=== PATIENT | female | born 1955 | race Caucasian/White ===

== ENCOUNTER → 2023-12-08 17:02 | Outpatient (REF) | payer BC, SELFPAY | LOC: WDC 17:02 | PROVIDERS: ATTENDING PHYSICIAN Family Medicine | DX: Z12.31 Encounter for screening mammogram for malignant neoplasm of breast (principal) | CPT/HCPCS: 77063; 77067 ==

== ENCOUNTER 2024-07-14 16:49 | Emergency (ER) | payer BC, SELFPAY ==
[2024-07-14 17:00] VITALS: BP 152/90
[2024-07-14 17:52] VITALS: BP 130/89
[2024-07-14 18:00] VITALS: BP 125/103
--- NOTE | 2024-07-14 18:41 | ED.GENMED ---
History of Present Illness
General
Chief Complaint: Chest Pain
Source: patient and records
Exam Limitations: none
Time Seen by Provider: 07/14/24 17:48
Nursing documentation reviewed up to this point in time: agreed with
History of Present Illness
History of Present Illness:
69-year-old female with a past medical history of hypertension, Takotsubo cardiomyopathy who presents to the emergency department for evaluation of chest pain. Patient reports onset of symptoms about 2 weeks ago and they have been intermittent
since that time�she reports episodes will last anywhere from 15 to 30 minutes and she gets them intermittently throughout the day; there is no clear exertional component or triggering factor and no clear relieving factor noted. She denies any
associated shortness of breath, nausea, vomiting, diaphoresis. She says that this morning she woke up with this chest pain and noticed that she was starting to have some radiation towards her left arm. She says that she checked her blood pressure
and it was very high (she notes that she forgot to take her blood pressure medicine in the past 2 days) and with this progression of pain in the left arm and elevated blood pressure decided she should come to the ER to be evaluated. She does follow
with cardiology through [facility] cardiology (Dr. Hanna). She currently is chest pain-free. She denies any other complaints including abdominal pain, edema or any other issues.
Review of Systems
Review of Systems
All Other Systems: ROS reviewed and negative except as documented in HPI and ROS
Constitutional: Denies fever or chills
EENT: Denies sore throat or runny nose
Respiratory: Denies cough or trouble breathing
Cardiac: Reports chest pain; Denies palpitations or syncope
ABD/GI: Denies abdominal pain, nausea or vomiting
: Denies flank pain
Musculoskeletal: Reports muscle pain (Left arm pain); Denies neck pain or back pain
Neurological: Denies dizzy or headache
Phy Exam
Physical Exam
Physical Exam:
General: Awake, alert, oriented x3; no acute distress
Head: Normocephalic, atraumatic
Eyes: Conjunctiva normal, EOMI
Throat: Airway intact, handling secretions
Neck: Trachea midline, supple without meningismus
Lungs: Clear to auscultation bilaterally, no wheezing, rales, rhonchi
Heart: Regular rate and rhythm, no murmurs, gallops, or rubs
Abd: Soft, non distended, nontender
Neuro: Cranial nerves grossly intact, speech fluid
Skin: no rash
Extremities: No edema in extremities, equal pulses in all extremities
Scores
Heart Failure Risk
Heart Failure Risk Score: Not Applicable
Heart Score for Chest Pain Patients
STEMI patient?: No
History: Slightly or Non-Suspicious
ECG: Normal
Age: >/= 65 years
Risk Factors: 1 or 2 Risk Factors
Troponin: </= Normal Limit
Heart Score for Chest Pain Patients: 3
Heart Score Risk: 2.5% MACE over next 6 weeks
Withdrawal Assessment of Alcohol
Withdrawal Assessment Completed?: Not applicable
Course
Orders/Labs/Results
Orders:
Orders
07/14/24 16:52
EKG [Electrocardiogram (*1)] Urgent
Reason for Study: Chest Pain
07/14/24 16:59
Electrocardiogram (*1) Urgent
Reason for Study: Chest Pain
EKG- Treatment ONCE
07/14/24 18:40
CR Chest - 2 Views Urgent
Comment:
Reason For Exam: chest pain
07/14/24 18:57
Complete Blood Count/With Diff Urgent
Comprehensive Metabolic Panel Urgent
D-Dimer Urgent
Lipase Urgent
Troponin I Urgent
Abnormal Lab Results
07/14/24
18:57
Hct 36.3 L %
(37.0-47.0)
BUN 19 H mg/dl
(7-17)
Calcium 11.0 H mg/dl
(8.4-10.2)
07/14/24 18:57
07/14/24 18:57
Vital Signs
Blood pressure: 125/102
Initial and Last Documented VS:
Initial Vital Signs
Temp Pulse Resp BP Pulse Ox
36.8 C 87 16 152/90 97
07/14/24 17:00 07/14/24 17:00 07/14/24 17:00 07/14/24 17:00 07/14/24 17:00
Last Documented Vital Signs
Temp Pulse Resp BP Pulse Ox
36.8 C 79 14 140/91 94
07/14/24 17:00 07/14/24 19:00 07/14/24 19:00 07/14/24 19:00 07/14/24 19:00
MDM/Problems Addressed
Differential Diagnosis Includes:
Angina/ACS, GERD, costochondritis, cervical radiculopathy, PE considered less likely
MDM/Problems Addressed:
69-year-old female presents for evaluation of intermittent chest pain left side, this morning not radiating to the arm. Not clearly exertional has been off and on for 2 weeks. Hypertensive this morning and in triage but blood pressure improved by
my assessment. Vital signs otherwise normal. EKG shows no STEMI. Physical exam as above. Plan to check labs including a CBC and a CMP, troponin, D-dimer. Check chest x-ray. Monitor on telemetry. Reassess after the above.
Labs reviewed: CBC unremarkable, CMP no clinically significant abnormalities. Troponin undetectable. D-dimer negative. Chest x-ray reviewed by me shows no acute disease. Vitals have been stable, patient well-appearing on reassessment. Low
suspicion that this is cardiac chest pain without clear exertional component�in fact patient reports that she was recently able to take a 4 mile hike without chest pain tolerated well. HEART score is 3. Symptoms could be GERD related�reasonable to
trial PPI. Nevertheless with her cardiac history reasonable to follow-up with cardiology expeditiously�can provide referral via chest pain hotline to follow-up with Dr. Hanna. Patient feels comfortable with this plan. Spoke about return
precautions and all questions answered.
Chronic conditions affecting care:
Hypertension
Chronic conditions affecting care: HTN
Acute Exacerbation and/or Progression of Chronic Illness: HTN
*Radiology
Radiology exam reviewed: preliminary read by ED provider
*Pulse Oximetry
Patient hypoxic: no
*EKG
Interpreted by ED Provider?: Yes
Heart Rate: 86
Rate: normal
Rhythm: sinus
Pickerel: normal axis
Interval: normal interval
QRS Pattern: normal QRS
Ischemia: no ischemia
*Critical Care Note
Total Time (30-74mins, 75-104mins- exclusive of procedures): Not Applicable
Data Reviewed
Review of Other/Old Records Reveals: Labs and Records
Source: patient and records
ED Attending Note
-
Portions of this chart may have been created with voice recognition software.� Occasional wrong word or��sound alike� substitutions may have occurred due to the inherent limitations of voice recognition software.
Discharge Plan
Departure
Patient Disposition: Home (Routine Discharge)
Date of Disposition: 07/14/24
Time of Disposition: 20:14
Patient with high blood pressure during this ER visit?: Yes
Discharge Problem:
Chest pain, Hypertension
Instructions: Chest Pain CBC Follow Up, BLOOD PRESSURE
Referrals:
Tamara Cisneros MD [Family Provider] -
Joanie Hanna MD [Active] - Follow up in 2-3 days
Activity Restrictions/Additional Instructions:
Thank you for visiting the Emergency Department at [facility].
1. Please schedule a follow up appointment as directed. Call first thing tomorrow morning to make an appointment.
2. If indicated, please take your medications as instructed and indicated on discharge paperwork.
3. If any of your symptoms do not improve, or persist, or become more severe within 6-12 hours, please return to the emergency department for further care.
4. Please return to the emergency department if you develop a headache, neck pain/stiffness, fever greater than 100.4F, chest pain, shortness of breath, persistent nausea, vomiting, slurred speech, difficulty walking, numbness/tingling, weakness,
signs of infection or any other symptoms that are worrisome to you.
Please call [phone] if you have any questions.
Interventions
Interventions:
ED- Cardiac Assessment Last Done: 07/14/24 19:02
Discharge Date and Time
Print Language: [id number]
[2024-07-14 18:57] VITALS: BMI 28.6
[2024-07-14 19:00] VITALS: BP 140/91
[2024-07-14 19:05] LABS: % Basophils 0.7 % (0-2); % Eosinophils 1.8 % (0-6); % Immature Granulocytes 0.1 % (0-0.5); % Lymphocytes 38.8 % (20.5-51.1); % Monocytes 7.6 % (1.7-9.3); Absolute Basophils 0.1 10^3/uL (0-0.2); Absolute Eosinophils 0.1 10^3/uL (0-0.7); Absolute Lymphocytes 2.8 10^3/uL (1.2-3.4); Absolute Monocytes 0.6 10^3/uL (0.1-0.6); Absolute Neutrophils 3.7 10^3/uL (1.4-6.5); Hematocrit 36.3 % (37.0-47.0); Hemoglobin 12.6 g/dL (12.0-16.0); Mean Corp Hgb Conc. 34.7 g/dL (33.0-37.0); Mean Corpuscular Hgb 29.1 pg (27.0-31.0); Mean Corpuscular Volume 83.8 fL (81.0-99.0); Mean Platelet Volume 9.3 fL (7.4-10.4); Nucleated Red Blood Cells % 0 %; Platelet Count 296 10^3/uL (130-400); Red Blood Cell Count 4.33 10^6/uL (4.20-5.40); Red Cell Dist. Width 12.6 % (11.5-14.5); White Blood Cell Count 7.2 10^3/uL (4.8-10.8)
[2024-07-14 19:18] LABS: ALT (SGPT) 24 U/L (0-35); AST (SGOT) 28 U/L (14-36); Albumin 4.6 g/dl (3.5-5.0); Alkaline Phosphatase 98 U/L (38-126); Blood Urea Nitrogen 19 mg/dl (7-17); Carbon Dioxide 22 mmol/L (22-30); Chloride 102 mmol/L (98-107); Estimated Creatinine Clearance 84 ml/min; Glucose 93 mg/dl (70-99); Lipase 57 U/L (23-300); Potassium 4.5 mmol/L (3.5-5.1); Sodium 138 mmol/L (135-145); Total Bilirubin 0.6 mg/dl (0.2-1.3); Total Protein 7.1 g/dl (6.3-8.2); eGFR > 60.00
[2024-07-14 19:26] LABS: D-Dimer < 0.27 ug/mlFEU (0.00-0.50)
[2024-07-14 19:30] LABS: Troponin I < 0.012 ng/ml
[2024-07-14 20:00] VITALS: BP 147/64
== END 2024-07-14 20:34 | disposition home or self-care (01) ==
LOC: EMR 16:49
PROVIDERS: EMERGENCY PHYSICIAN Emergency Medicine; FAMILY PHYSICIAN Family Medicine
DX: R07.89 Other chest pain (principal); M79.602 Pain in left arm; I10 Essential (primary) hypertension; Z91.138 Patient's unintentional underdosing of medication regimen for other reason; I51.81 Takotsubo syndrome; Z91.013 Allergy to seafood
CPT/HCPCS: 99284; 71046; 80053; 83690; 84484; 85025; 85379; 93005

== ENCOUNTER → 2024-07-17 13:50 | Outpatient (REF) | payer BC, SELFPAY | LOC: RCS 13:50 | PROVIDERS: ATTENDING PHYSICIAN Student in an Organized Health Care Education/Training Program; FAMILY PHYSICIAN Family Medicine | DX: I10 Essential (primary) hypertension (principal) | CPT/HCPCS: 93306 ==

== ENCOUNTER → 2024-09-27 15:33 | Outpatient (REF) | payer BC, SELFPAY | LOC: RAD 15:33 | PROVIDERS: ATTENDING PHYSICIAN Nurse Practitioner Adult Health; FAMILY PHYSICIAN Family Medicine | DX: M26.623 Arthralgia of bilateral temporomandibular joint (principal) | CPT/HCPCS: 70100 ==

== ENCOUNTER → 2024-12-11 15:50 | Outpatient (REF) | payer BC, SELFPAY | LOC: WDC 15:50 | PROVIDERS: ATTENDING PHYSICIAN Family Medicine | DX: Z12.31 Encounter for screening mammogram for malignant neoplasm of breast (principal) | CPT/HCPCS: 77063; 77067 ==

== ENCOUNTER 2024-12-21 06:22 | Day surgery (SDC) | payer BC, SELFPAY | END 2024-12-21 15:44 | disposition home or self-care (01) | LOC: GI 06:22 | PROVIDERS: ATTENDING PHYSICIAN Internal Medicine Gastroenterology; FAMILY PHYSICIAN Family Medicine | DX: D12.3 Benign neoplasm of transverse colon (principal); D12.0 Benign neoplasm of cecum; K63.5 Polyp of colon; K57.30 Diverticulosis of large intestine without perforation or abscess without bleeding; R12 Heartburn; R10.13 Epigastric pain; Z86.0101 Personal history of adenomatous and serrated colon polyps | CPT/HCPCS: 45385; 45380; 43235; 88305 ==